=== PATIENT | male | born 1975 | race African-American/Black ===

== ENCOUNTER 2018-05-10 04:07 | Inpatient (IN) | payer OTHER ==
[~2018-05-10] VITALS: Ht 182.9 cm; Wt 127.6 kg
[~2018-05-10 04:07] MED LIST: CYCLOBENZAPRINE10 M1 PO; FLEXERIL10 MG PO; IBUPROFEN800 M1 PO; MEDROL4 M2 PO; MOTRIN 600 MG600 MG PO
--- NOTE | 2018-05-10 04:10 | ED GENERAL ADULT ---
See Addendum History of Present Illness General Chief Complaint: Psychiatric Related Complaint Stated Complaint: BIBA +SI Source: patient Exam Limitations: no limitations Vital Signs & Intake/Output Vital Signs & Intake/Output Vital Signs Date Time Temp Pulse Resp B/P B/P Pulse O2 O2 Flow FiO2 Mean Ox Delivery Rate 05/118 98.5 85 18 116/67 98 Room Air 05/11 1951 98.6 93 18 119/73 98 Room Air 05/11 1411 98.1 88 20 140/82 98 Room Air 05/11 1201 97.1 76 20 132/80 97 05/11 0852 98.4 99 18 118/71 99 05/11 0607 98.1 92 18 128/72 98 Room Air Allergies Coded Allergies: NO KNOWN ALLERGIES (07/04/15) Triage Nurses Notes Reviewed? yes Onset: Gradual Duration: day(s): Timing: remote history HPI: 43 year old male complains of depression with suicidal ideation. The patient states that he's been drinking alcohol tonight and he is just not right. He says he's been depressed and having thoughts about hurting himself. He denies any plan. He says he has a history of chronic back pain. (Misael Kang DO) Reconcile Medications No Known Home Medications (Alea SHELTON,Misael High) Past History Travel History Traveled to [place] past 21 day No Medical History Any Pertinent Medical History? see below for history Cardiovascular: hypertension Surgical History Surgical History: N Psychosocial History What is your primary language French Family History Hx Contributory? No (Misael Kang DO) Review of Systems Review of Systems Constitutional: Denies: fever. EENTM: Denies: visual changes. Respiratory: Denies: short of breath. Cardiovascular: Denies: chest pain. GI: Denies: abdominal pain. Genitourinary: Reports: no symptoms. Musculoskeletal: Reports: no symptoms. Skin: Reports: no symptoms. Neurological/Psychological: Reports: depressed. Hematologic/Endocrine: Reports: no symptoms. Immunologic/Allergic: Reports: no symptoms. (Misael Kang DO) Physical Exam Physical Exam General Appearance: alert, awake, anxious Head: atraumatic, normal appearance Eyes: Bilateral: normal appearance, PERRL, EOMI. Ears, Nose, Throat: normal ENT inspection Neck: full range of motion Respiratory: normal breath sounds, chest non-tender, no respiratory distress Cardiovascular: regular rate/rhythm Peripheral Pulses: 4+ radial (R), 4+ radial (L) Gastrointestinal: soft, non-tender Back: normal range of motion Extremities: no edema Neurologic/Psych: no motor/sensory deficits, awake, alert, oriented x 3 Skin: intact, normal color, warm/dry Core Measures ACS in differential dx? No CVA/TIA Diagnosis: No Sepsis Present: No Sepsis Focused Exam Completed? No (Misael Kang DO) Progress Differential Diagnoses I considered the following diagnoses in my evaluation of the patient: [drug abuse, alcohol intoxication, depression] Plan of Care: Orders Procedure Date/time Status Regular Diet 05/11 D Active Current Medications Sig/Betty Start time Last Medication Dose Stop Time Status Admin Lorazepam 1 MG Q4P PRN 05/11 2145 AC 05/11 (Ativan) 2205 Initial ED EKG: none (Misael Kang DO) Comments: 05/10/2018 8:22:39 AM patient signed out to me by Dr. Kang at shift loom changer. 05/10/2018 10:28:53 AM the treated patient with Maalox and Pepcid given his complaint of "acid reflux". Patient is feeling much better after medications. Awaiting evaluation by the coat checker. 05/10/2018 8:01:11 PM patient signed out to Dr. Kang at shift loom changer. 05/11/2018 7:52:17 PM patient signed out to Dr. Kramer at shift loom changer after an uneventful emergency department stay during the day shift. (Alea SHELTON,Misael High) Departure Departure Disposition: STILL A PATIENT Condition: Stable Clinical Impression Primary Impression: Depression Referrals: Patient Has No Primary Care Dr (PCP/Family) Departure Forms: Customer Survey General Discharge Information Comments 05.10.18 4:36 AM labs were drawn. Crisis consultation was requested. The patient will be signed to Dr. Cosby at 7 AM (Misael Kang DO) Departure Prescriptions: Current Visit Scripts No Known Home Medications (Alea SHELTON,Misael High) Departure Comments pt to be signed out to dr. cosby, 05/12/18, 7am. (Nia SHELTON,Patrice Farley) Critical Care Note Critical Care Note Critical Care Time: 30-74 min (Misael Kang DO) Current Visit Scripts No Known Home Medications (Alea SHELTON,Misael High) Critical Care Note Critical Care Note Critical Care Time: 30-74 min (Misael Kang DO)
[2018-05-10 04:51] LABS: ABSOLUTE BASOPHIL COUNT 0 /CUMM (0.0-0.2); ABSOLUTE EOSINOPHIL COUNT 0.1 /CUMM (0.0-0.7); ABSOLUTE GRANULOCYTE CT 5.2 /CUMM (1.4-6.5); ABSOLUTE LYMPH COUNT 1.7 /CUMM (1.2-3.4); ABSOLUTE MONOCYTE COUNT 0.4 /CUMM (0.10-0.60); BASOPHIL % 0.3 % (0.0-2.0); EOSINOPHIL % 1.1 % (0-5); GRANULOCYTE % 70.4 % (42.2-75.2); HEMATOCRIT 43.4 % (42-52); MEAN CORPUSCULAR HGB 29.8 PG (27.0-31.0); MEAN CORPUSCULAR HGB CONC 33.9 G/DL (33.0-37.0); MEAN PLATELET VOLUME 7.9 FL (7.4-10.4); PLATELET COUNT 359 /CUMM (130-400); RBC DISTRIBUTION WIDTH 13.6 % (11.5-14.5); RED BLOOD CELL CT 4.93 /CUMM (4.70-6.10); WHITE BLOOD CELL COUNT 7.4 /CUMM (4.8-10.8)
--- NOTE | 2018-05-10 17:05 | ED PSYCH CRISIS CONSULTATION ---
See Addendum Crisis Consult Basic Assessment Date of Consult: 05/10/18 Responsible Person/Accompanied By: n/a Insurance Authorization: Insurance #1: Insurance name: HUGO IBRAHIM Phone number: Policy number: [id number] Group number: [id number] Authorization number: ED Provider: Patient's ED Provider: Misael Cosby MD Primary Care Physician: Patient's PCP: Patient Has No Primary Care Dr PCP's Phone Number: Current Psychiatrist: none Chief Complaint: Psychiatric Related Complaint Patient's Quote: "I just want to let myself go, I want to kill myself." Present Illness: Pt is a 43 year old male BIBA after making suicidal statements with a plan to jump off a bridge. Pt continues to report SI at this time with a plan to jump off the bridge. Pt reports depression 9/10 and anxiety 9/10 with 10 being the most severe. He states that he has not been sleeping or eating and having a hard time concentrating. Pt also reports auditory hallucinations that are command in nature which are telling him to kill himself by jumping off a bridge. He also reports some paranoia. He states that a couple weeks ago, a demon voice was coming from my phone saying happy birthday. Pt reports 2 prior suicide attempts ; in 2006, pt attempted to slit his throat and he showed this narrative writer a visible scar. He also stated that a few years ago he attempted to kill himself by jumping out of a 4th story window. He states he was brought to the hospital, but left against medical advice. At this time pt denies HI or VH. Pt reports multiple stressors at this time. He has been on workers compensation since December due to a back injury so has limited income. He and his girlfriend of 6 years have been arguing often. He states that his girlfriend is always accusing him of cheating. Pt was very interested in talking about his relationship with his girlfriend and multiple times during this assessment continued to [place] back to talk about the accusations that his girlfriend has made against him of cheating and how unhappy he is in the relationship. Pt reports that last night, his girlfriend woke him up yelling at him and told him to get out of the house. Pt reports he left the house and walked to a senior living in [place]. Pt states that when he was crossing a bridge on his walk he was hearing voices telling him to jump off the bridge and wanted to jump, but decided to go to the senior living instead. When he got to the senior living he was turned away and then he voiced his suicidal ideation, prompting the senior living staff to call 911. Upon arrival, pts BAL was 42 and his tox screen was positive for cocaine. Pt reports drinking 2 40oz beers last night, but denies using cocaine. He reports that he has been in treatment in the past at [place] and [facility]. Pt states that he liked attending [facility] and thought it was helpful, but his girlfriend made him discharge as she accused him of sleeping with his medcab swing driver. C-SSRS completed and pt identified the following risk factors: suicide attempts in lifetime, in the past week has wished to be , had suicidal thoughts with intent and a plan, recent loss or other significant event, feeling isolated or alone. Feeling helpless, depressed, command hallucinations, severe anxiety, chronic pain, method for suicide, unable to agree to safety plan. Pt identifies the following protective factors: identifies reasons for living, and responsibility to others. Patient's Address: [address] [place] [address] Other Phone Number: Who Do You Live With? Significant Other Family/Informants Interviewed: pt reports he has no family and does not want crisis to contact his girlfriend Юлия Montes. Allergies - Coded Allergies: NO KNOWN ALLERGIES (07/04/15) Current Medications - No Known Home Medications Laboratory Results: Laboratory Tests 05/10/18 0730: Urine Opiates Screen < 100, Methadone Screen < 40, Barbiturate Screen < 60, Ur Phencyclidine Scrn < 6.00, Amphetamines Screen < 100, U Benzodiazepines Scrn < 85, Urine Cocaine Screen > 1000 H, Urine Cannabis Screen < 5.00 05/10/18 0442: Anion Gap 18 H, Estimated GFR > 60, BUN/Creatinine Ratio 10.0, Glucose 125 H, Calcium 9.3, Total Bilirubin 0.4, AST 37, ALT 62, Alkaline Phosphatase 90, Total Protein 8.3 H, Albumin 4.8, Globulin 3.5, Albumin/Globulin Ratio 1.4, CBC w Diff NO MAN DIFF REQ, RBC 4.93, MCV 88.0, MCH 29.8, MCHC 33.9, RDW 13.6, MPV 7.9 , Gran % 70.4, Lymphocytes % 22.4, Monocytes % 5.8, Eosinophils % 1.1, Basophils % 0.3, Absolute Granulocytes 5.2, Absolute Lymphocytes 1.7, Absolute Monocytes 0.4, Absolute Eosinophils 0.1, Absolute Basophils 0, Serum Alcohol 42.0 Past History Past Medical History Cardiovascular: hypertension Psychiatric: depression Past Surgical History Surgical History: none Psychosocial History Strengths/Capabilities: Pt is seeking help and willing to engage in treatment. Physical Limitations (Interventions): Pt is currently on workers compensation because of sciatic nerve pain in his back. Psychiatric Treatment History Psych Treatment Psychiatric Treatment Yes Inpatient Treatment Yes Outpatient Treatment Yes Location of Treatment [facility] Reason for Treatment depression, substances Dates of Treatment stopped attending [facility] a couple years ago Response to Treatment Pt reports Care was very helpful to him. Diagnosis by History: Depression Substance Use/Abuse History Drug Use/Abuse 1 Substances Used/Abused Yes Substance Used/Abused Alcohol First Use "years ago" Last Used last night How much used/taken 2 40oz beers How often "whenever I have money" For how long on and off for years Route of use oral Drug Use/Abuse 2 Substances Used/Abused Yes Substance Used/Abused Crack Cocaine First Use "its been a while" Last Used "months ago" How much used/taken unclear How often unclear For how long unclear Route of use unclear Substance Abuse Treatment Substance Abuse Treatment Past Substance Abuse TX Yes Inpatient Treatment Yes Outpatient Treatment Yes Location of Treatment [facility] Reason for Treatment unclear, possible alcohol Dates of Treatment unclear Response to Treatment Pt presents as a poor historian, response to treatment is unclear Current Mental Status Mental Status Orientation: Person, Place, Situation Affect: Anxious, Depressed, Sad Speech: Hyper-verbal, WNL Neuro-vegetative: Appetite Decreased, Concentration Poor, Energy Decreased, Sleep Disturbance Appearance Appearance- Dress/Hygiene: Pt is dressed in blue hosptial scrubs. He has facial hair and appears to have adequate hygeine. Behaviors Thought Process: Tangential Thought Content: Auditory Hallucinations, WNL Memory: Impaired Insight: Fair SI/HI Risk Assessment Past Suicidal Ideation/Attempts Yes Current Suicidal Ideation/Att Yes Past Homicidal Ideation/Att: No Current Homicidal Ideation/Attempts No Degree of Intent: Made Preparations, Plan, States Intent Danger To: Self Gravely Disabled: Lack of Insight, Poor Judgment Risk Factors: access to lethal means, chronic/serious med cond., high anxiety/ distress, history of suicide atmpts, SA/MH hospitalized, substance abuse, isolate/no social support, poor impulse control, male, limited support Lethality Ratin PTSD Checklist PTSD Done? patient declined (denies trauma history) ED Management Sitter: Yes Restraints: No DSM5/PS Stressors/Medical Prob Diagnosis' (DSM 5, Stressors, Medical): F32.9 - Unspecified Depression F10.20 - Alcohol Use Disorder F14.20 - Cocaine Use Disorder Rule out Psychotic Disorder Medical - Sciatic back pain Stressors: fight with girlfriend, no family supports, on workers compensation for back injury. Current GAF: 25 Departure Disposition Psych Medical Clearance Date: 05/10/18 Medically Cleared at: 1700 Time Started: 1700 Time Ended: 1800 Psychiatrist Consulted: Dr. Reynoso Date Disposition Established: 05/10/18 Time Disposition Established: 1800 Plan for Disposition - Modality: Bedsearch vs. CPS Rationale for Disposition: Crisis spoke to Dr. Reynoso who agrees that pt requires acute inpatient treatment at this time. Pt continues to report SI with a plan to jump off a bridge that he has access too. Pt also reports command hallucinations. Type of IP Admission: Voluntary Referrals Patient Has No Primary Care Dr (PCP/Family)
--- NOTE | 2018-05-11 09:57 | ED PSY CRISIS COLLATERAL NOTE ---
Collateral Note Collateral Note Family/Inform/Goldie Contacts: Addendum 05/11/18 9:40 am: Pt. was seen by Crisis this AM. He asked if he was still waiting for a hospital bed and this chief writer said yes. This chief writer asked if he still wanted to be hospitalized and he replied "well, if I was going to be released where would I go?". He stated he was satisfied to continue waiting for a hospital bed. This was added as an addendum to the consult but [employer] would not allow me to save the addendum so the re-eval has been written in the collateral note template.
--- NOTE | 2018-05-11 12:08 | ED PSYCHIATRIST/APRN CONSULT ---
Psychiatrist/SENIOR FORMULATION SCIENTIST ED Consult Assessment and Plan: Pt seen as f/u Notes not changes in SI and cAHs. Primary stressor is poor relationship with gf. Continues + SI. MSE Appearance: as stated age Speech : nl rate, rhythm, volume and prosody Behavior: cooperative Motor: no psychomotor agitation or retardation Mood : "not too good Affect : flat, non-labile, irritable, appropriate, constricted Thought process: linear and goal directed Thought content : no delusions or paranoia Perceptions: ++ cAHs, +SI, denied HI Insight: poor Judgment: poor A/P: Pt with worsening mood and psychotic sx now with continued danger to self in need of acute psychiatric stablization. Bed search underway.
--- NOTE | 2018-05-12 15:22 | IP CRISIS DIAG ASSESS PSYCH ---
Diagnostic Assessment Basic Assessment Insurance Authorization: Insurance #1: Insurance name: HUGO IBRAHIM Phone number: Policy number: [id number] Group number: [id number] Authorization number: Pt was authorized for 4 days inpatient from 05/12/18- 05/15/18. Auth #[id number]. Manager Of Global will reach out to [facility] on 05/15/18 Primary Care Physician: Patient's PCP: Patient Has No Primary Care Dr PCP's Phone Number: Patient's Quote: "I just want to let myself go, I want to kill myself." Present Illness: Per crisis evaluation authored by Bella Stuart LPC: Pt is a 43 year old male BIBA after making suicidal statements with a plan to jump off a bridge. Pt continues to report SI at this time with a plan to jump off the bridge. Pt reports depression 9/10 and anxiety 9/10 with 10 being the most severe. He states that he has not been sleeping or eating and having a hard time concentrating. Pt also reports auditory hallucinations that are command in nature which are telling him to kill himself by jumping off a bridge. He also reports some paranoia. He states that a couple weeks ago, a demon voice was coming from my phone saying happy birthday. Pt reports 2 prior suicide attempts ; in 2006, pt attempted to slit his throat and he showed this senior medical writer a visible scar. He also stated that a few years ago he attempted to kill himself by jumping out of a 4th story window. He states he was brought to the hospital, but left against medical advice. At this time pt denies HI or VH. Pt reports multiple stressors at this time. He has been on workers compensation since December due to a back injury so has limited income. He and his girlfriend of 6 years have been arguing often. He states that his girlfriend is always accusing him of cheating. Pt was very interested in talking about his relationship with his girlfriend and multiple times during this assessment continued to [place] back to talk about the accusations that his girlfriend has made against him of cheating and how unhappy he is in the relationship. Pt reports that last night, his girlfriend woke him up yelling at him and told him to get out of the house. Pt reports he left the house and walked to a penitentiary in [place]. Pt states that when he was crossing a bridge on his walk he was hearing voices telling him to jump off the bridge and wanted to jump, but decided to go to the penitentiary instead. When he got to the penitentiary he was turned away and then he voiced his suicidal ideation, prompting the penitentiary staff to call 911. Upon arrival, pts BAL was 42 and his tox screen was positive for cocaine. Pt reports drinking 2 40oz beers last night, but denies using cocaine. He reports that he has been in treatment in the past at [place] and [facility]. Pt states that he liked attending [facility] and thought it was helpful, but his girlfriend made him discharge as she accused him of sleeping with his medcab mobile lounge driver. C-SSRS completed and pt identified the following risk factors: suicide attempts in lifetime, in the past week has wished to be , had suicidal thoughts with intent and a plan, recent loss or other significant event, feeling isolated or alone. Feeling helpless, depressed, command hallucinations, severe anxiety, chronic pain, method for suicide, unable to agree to safety plan. Pt identifies the following protective factors: identifies reasons for living, and responsibility to others. Patient's Address: [address] [place] [address] Other Phone Number: Who Do You Live With? Significant Other Feel Safe Where You Live? Yes Marital Status: single Do You Have Children? No Primary Language? Kazakh Language(s) Spoken At Home: [place] Family/Informants Interviewed: pt reports he has no family and does not want crisis to contact his girlfriend Юлия Montes. Allergies - Coded Allergies: NO KNOWN ALLERGIES (NONE 05/12/18) Current Medications - No Known Home Medications Toxicology Screen Completed? Yes Results: positive Symptoms of Use: + cocaine Past History Past Medical History Medical History: Depression, Hypertension Past Surgical History Surgical History none Abuse/Trauma History Trauma History/Current Trauma: Denies Legal History Current Legal Status: none Have you ever been arrested? No Psychosocial History Strengths/Capabilities: Pt is seeking help and willing to engage in treatment. Physical Limitations (Interventions): Pt is currently on workers compensation because of sciatic nerve pain in his back. Psychiatric Treatment History Psych Treatment Psychiatric Treatment Yes Inpatient Treatment Yes Outpatient Treatment Yes Location of Treatment [facility] Reason for Treatment depression, substances Dates of Treatment stopped attending [facility] a couple years ago Response to Treatment Pt reports [facility] was very helpful to him. Diagnosis by History: Depression Risk Factors: access to lethal means, chronic/serious med cond., high anxiety/ distress, history of suicide atmpts, SA/MH hospitalized, substance abuse, isolate/no social support, poor impulse control, male, limited support Substance Use/Abuse History Drug Use/Abuse minimum 12mo Hx 1 Substances Used/Abused Yes Substance Used/Abused Crack Cocaine First Use "its been a while" Last Used "months ago" How much used/taken unclear How often unclear For how long unclear Route of use unclear Drug Use/Abuse minimum 12mo Hx 2 Substances Used/Abused Yes Substance Used/Abused Alcohol First Use "years ago" Last Used 05/09/18 How much used/taken two 40 ozs How often on weekends For how long since January 2018 @ this frequency. Pt reports he was sober for period Route of use oral Substance Abuse Treatment Substance Abuse Treatment Past Substance Abuse TX Yes Inpatient Treatment Yes Outpatient Treatment Yes Location of Treatment [facility] Reason for Treatment unclear, possible alcohol Dates of Treatment unclear Response to Treatment Pt presents as a poor historian, response to treatment is unclear Current Mental Status Mental Status Orientation: Person, Place, Situation Affect: Anxious, Depressed, Sad Speech: Hyper-verbal, WNL Neuro-vegetative: Appetite Decreased, Concentration Poor, Energy Decreased, Sleep Disturbance Appearance Appearance- Dress/Hygiene: Pt is dressed in blue hosptial scrubs. He has facial hair and appears to have adequate hygeine. Behaviors Thought Process: Tangential Thought Content: Auditory Hallucinations, WNL Memory: Impaired Insight: Fair SI/HI Risk Assessment - Minimum 6mo History- Past Suicidal Ideation/Attempts Yes Current Suicidal Ideation/Att Yes Past Homicidal Ideation/Att: No Current Homicidal Ideation/Attempts No Degree of Intent: Made Preparations, Plan, States Intent Danger To: Self Gravely Disabled: Lack of Insight, Poor Judgment Risk Factors: access to lethal means, chronic/serious med cond., high anxiety/ distress, history of suicide atmpts, SA/MH hospitalized, substance abuse, isolate/no social support, poor impulse control, male, limited support Lethality Ratin Needs/Init TX Plan/Goals: comphrensive psychiatric assessment medication evaluation comphrensive psychosocial assessment individual and family therapy family meeting AUDIT-C Questionnaire: AUDIT-C Questionnaire: Response Value ETOH use in the past year 2-4 times/week 3 # drinks typical/day 7-9 3 6 or > drinks per occasion Weekly 3 Total 9 DSM5/PS Stressors/Medical Prob Diagnosis' (DSM 5, Stressors, Medical): F32.9 - Unspecified Depression F10.20 - Alcohol Use Disorder F14.20 - Cocaine Use Disorder Rule out Psychotic Disorder Medical - Sciatic back pain Stressors: fight with girlfriend, no family supports, on workers compensation for back injury. Current GAF: 25
[2018-05-12 20:36] VITALS: BP 165/87
[2018-05-13 07:59] VITALS: BP 149/78
--- NOTE | 2018-05-13 11:45 | CPS PROVIDER INIT ASMT PSYCH ---
Psychiatric Admission Paper Maker's Note Reviewed: Yes Patient Seen and Examined: Yes Identifying Information: 43-year-old Black male Chief Complaint: Per notes of Maricel Acharya LCSW, on 05/12/2018: "[Pt.] making suicidal statements with a plan to jump off a bridge." Reaction to Hospitalization: The patient was admitted voluntarily History of Present Illness Onset of Illness: According to the notes from the health clinician the patient was with care for psychiatric treatment "a couple of years ago." Circumstances Leading to Admission: Per notes of Maricel Acharya LCSW, on 05/12/2018: "a 43 year old male BIBA after making suicidal statements with a plan to jump off a bridge. Pt continues to report SI at this time with a plan to jump off the bridge. Pt reports depression 9/10 and anxiety 9/10 with 10 being the most severe. He states that he has not been sleeping or eating and having a hard time concentrating. Pt also reports auditory hallucinations that are command in nature which are telling him to kill himself by jumping off a bridge. He also reports some paranoia. He states that a couple weeks ago, a demon voice was coming from my phone saying happy birthday. Pt reports 2 prior suicide attempts ; in 2006, pt attempted to slit his throat and he showed this literary writer a visible scar. He also stated that a few years ago he attempted to kill himself by jumping out of a 4th story window. He states he was brought to the hospital, but left against medical advice." Problem(s) Justifying Need for Admission: Thoughts of suicide with a plan to jump off a bridge. Past Psychiatric History Past Diagnosis(es)- if any: Unknown previous diagnoses. Past Precipitating Factors- if any: Alcohol and cocaine use - Include inpatient and outpatient treatment Treatment History: Patient was with care "a couple of years ago." History of Suicide Attempts or Gestures Patient reportedly had 2 previous suicide attempts 1 of them was in 2006. The other attempt he was not clear on. Substance Abuse History: Alcohol and cocaine use Allergies: Coded Allergies: NO KNOWN ALLERGIES (NONE 05/12/18) Home Med List: No Known Home Medications - Include any medical condition(s) that may - impact the patient's recovery/remission Past Medical History: HTN Past History Medical History Neurological: NONE EENT: NONE Cardiovascular: hypertension Respiratory: NONE Gastrointestinal: ACID REFLUX Hepatic: NONE Renal: NONE Musculoskeletal: sciatica Psychiatric: depression Endocrine: NONE Blood Disorders: NONE Cancer(s): NONE History of MRSA: No History of VRE: No History of CDIFF: No Isolation History: Standard Surgical History Surgical History: none Psychiatric Family/Social Hx Family History Psychiatric Illness: not explored by MD, please see the biopsychosocial assessment by PLASTERER JOURNEYMAN Substance Use: not explored by MD, please see the biopsychosocial assessment by P[employer] JOURNEYMAN Suicides: not explored by MD, please see the biopsychosocial assessment by [employer]OURNEYMAN Social History Living Situation: not explored by MD, please see the biopsychosocial assessment by [facility] Significant Relationships (family/friends): not explored by MD, please see the biopsychosocial assessment by [facility] Education: not explored by MD, please see the biopsychosocial assessment by [employer] JOURNEYMAN Vocation/Occupation: not explored by MD, please see the biopsychosocial assessment by PLASTER[employer] JOURNEYMAN Legal: not explored by MD, please see the biopsychosocial assessment by PLASTER[employer] JOURNEYMAN Healthly Behaviors Screening Tobacco Screening Tobacco Use from ED Docu: Current Daily Use Daily Tobacco Use Amount/Type: => 5 Cigarettes daily - If tobacco counseling indicated - the following topics are required. - #1 Recognizing dangerous situations. - #2 Coping Skills. - #3 Basic information about quitting. Status of Tobacco Cessation Counseling: #1, #2 AND #3 Completed Cessation Med Status Nicotine Patch Ordered Alcohol Screening - ETOH screen POS if BAL >=80 or Audit-C>= M4/F3 Audit-C Score from Diag Assess: 9 Blood Alcohol Level: Lab Serum Alcohol 42.0 MG/DL 05/10/18 0442 Alcohol Use Screening Results: Pos per Audit C &/or BAL - If ETOH counseling indicated - the following topics are required. - #1 Express concern about the patient's - drinking at unhealthy levels, include informing - of national norms for moderate drinking: - men <= 14 drinks/week, max 4 drinks/occasion - women <= 7 drinks/week, max 3 drinks/occasion - #2 Providing feedback, including linking alcohol to - negative physical effects (liver injury, hypertension) - negative emotional effects (relationship problems and - depression) - negative occupational consequences (reduced work - performance) - #3 Advising the patient to abstain from alcohol or - to drink below national norms for moderate drinking - (as listed above). Status of ETOH Use Counseling: #1, #2 AND #3 Completed. Metabolic Screening - Screen if on a Neuroleptic Medication - Metabolic screening should include: - Blood Pressure, BMI, Glucose or Hgb A1c, & a - Lipid profile from within the past 365 days. Metabolic Screening Patient on a neuroleptics BMI: 38.300 Blood Pressure: 149/78 Laboratory Results From [facility] (If applicable): add on requested Exam and Plan Mental Status Examination Ambulation Status: The patient was steady on his feet. Appearance: Well-built overweight black male Attitude towards examiner: Calm and cooperative. Psychomotor activity: Normal psychomotor activity. Behavior: Normal behavior. Quality of speech: Normal speech. Affect: Euthymic affect. Mood: Down and depressed. Suicidal Ideation: Deny thoughts of suicide today. He reported that he was having them yesterday. Homicidal Ideation: Denied violent thoughts or homicidal ideation. Hallucinations: Denied hallucinations P Paranoid/Delusional Material: He reported that he has been feeling paranoid. There were no specific delusions during the interview. Difficulties with thought organization: Patient was coherent, there were no difficulties with thought organization. Insight: Seems to have partial insight. Judgment: Seemed to have good judgment in hypothetical situations during the interview. Orientation: He was alert and oriented to time, place, and person. Cognition: He did not seem to have any difficulty with information processing. Memory Function: No evidence of short-term memory impairment. Estimate of intellectual functioning: Average. Assets/Strengths Patient Identified Assets/Strengths: The patient appears to be honest and likable, Impression/Plan Impression and Plan: 43-year-old black male who was admitted because of thoughts of suicide. He has not been in treatment recently but reported that he was in treatment with [facility] "a couple of years ago". He was not on any psychotropic medications at home. He reported depressed mood thoughts of suicide with some plans of jumping off a bridge and he also reported paranoia. 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 but rule out other psychotic Disorder - Initial Tx Plan for Active Psych & Medical Conditions Treatment Plan: Inpatient psychiatric care with safety checks every 15 minutes and Nursing assessments, vital signs, and patient education and Group therapy, milieu therapy, activities therapy Biopsychosocial assessment, collateral information, aftercare planning Patient was started on Risperdal dose will be adjusted up gradually The patient will have his MRI of the back/spine tomorrow morning since he was perseverating about this and focused on this - Factors that would help patient function - in a less restrictive setting. Factors: The patient will be discharge after 2 consecutive days without thoughts of suicide
[2018-05-13 12:21] VITALS: BP 129/71
--- NOTE | 2018-05-13 12:41 | History & Physical ---
General Information and HPI MD Statement: I have seen and personally examined MICHAEL BLOCK and documented this H&P. The patient is a 43 year old M who presented with a patient stated chief complaint of SI. Source of Information: patient Exam Limitations: no limitations History of Present Illness: 43-year-old male with past medical history significant for anxiety, depression, past suicide attempts who is admitted to [facility] with suicidal ideation. Patient had a fight with his girlfriend and he left the house. He was walking to the residential and while walking when he crossed the bridge, he wanted to jump off the bridge. He decided not to do that and instead went to the residential. He has been having thoughts of hurting himself because of feeling depressed and anxious. He said that there is a lot going on in his life. He is mostly concerned about his relationship with his girlfriend. He did mention that they spoke this morning over the phone and everything is okay now. He also has history of lower back pain with sciatica and had been on worker's comp from last 4 months. He has an MRI scheduled for tomorrow morning for his back. He is very concerned about getting that study done. He denies any chest pain, shortness of breath, fevers, chills, nausea, vomiting, abdominal pain, urinary complaints. He denies taking any home prescription medications. He does not remember which [id number] pain medication he was taking for his sciatica. Allergies/Medications Allergies: Coded Allergies: NO KNOWN ALLERGIES (NONE 05/12/18) Home Med list No Known Home Medications Past History Travel History Traveled to [place] past 21 day No Medical History Neurological: NONE EENT: NONE Cardiovascular: hypertension Respiratory: NONE Gastrointestinal: ACID REFLUX Hepatic: NONE Renal: NONE Musculoskeletal: sciatica Psychiatric: depression Endocrine: NONE Blood Disorders: NONE Cancer(s): NONE History of MRSA: No History of VRE: No History of CDIFF: No Isolation History: Standard Surgical History Surgical History: N Past Family/Social History Family History Relations & Conditions if any Relation not specified for: *No pertinent family history Psychosocial History Where do you live? Other Review of Systems Review of Systems Constitutional: Reports: see HPI. EENTM: Reports: see HPI. Cardiovascular: Reports: see HPI. Respiratory: Reports: see HPI. GI: Reports: see HPI. Genitourinary: Reports: see HPI. Musculoskeletal: Reports: see HPI. Neurological/Psychological: Reports: see HPI. Exam & Diagnostic Data Last 24 Hrs of Vital Signs/I&O Vital Signs Date Time Temp Pulse Resp B/P B/P Pulse O2 O2 Flow FiO2 Mean Ox Delivery Rate 05/13 1221 96 129/71 05/13 0759 97.8 96 149/78 05/12 2036 98.2 98 165/87 05/12 1846 98.3 85 18 130/84 97 05/12 1552 98.3 86 18 136/88 99 05/12 1307 98.2 98 18 120/63 97 Intake & Output 05/13 1600 05/13 0800 05/13 0000 Intake Total Output Total Balance Patient 281 lb 275 lb Weight Physical Exam General Appearance Alert, Oriented X3, Cooperative Skin No Rashes HEENT PERRLA Neck Supple Cardiovascular Regular Rate, Normal S1, Normal S2 Lungs Clear to Auscultation Abdomen Normal Bowel Sounds, Soft, No Tenderness Neurological Cranial Nerves II through XII: intact Last 24 Hrs of Labs/Aditya: Labs from May 10 reviewed. Assessment/Plan Assessment: 43-year-old male with past medical history significant for anxiety, depression, sciatica, suicide attempts in the past who is admitted to [facility] with suicidal ideation. Patient is order Tylenol as needed for his pain. His pain score is not bad and he is not currently complaining of intolerable pain. Patient is very concerned about getting his back MRI done tomorrow. Please discuss with the radiology department to see how this can be coordinated. I will leave the psych management up to the psychiatrist. I have reviewed his blood work. He did have high anion gap. I will repeat his BP today. As Ranked By This Provider Problem List: 1. Sciatica 2. Back pain 3. Depression 4. Suicidal ideation Miscellaneous Miscellaneous Documentation Attending Case Discussed With: Shauna Weber MD Primary Care Physician: Patient Has No Primary Care Dr Patient sees these Specialists none Level of Patient Care: [facility]
--- NOTE | 2018-05-13 12:45 | SOCIAL WORKER SOCIAL HX PSYCH ---
Social History Basic Assessment Insurance Authorization: Insurance #1: Insurance name: [employer] Phone number: Policy number: [id number] Group number: [id number] Authorization number: Curr Source of Income/Entitlements: employment Primary Care Physician: Patient's PCP: Patient Has No Primary Care Dr PCP's Phone Number: Present Problem: Per crisis evaluation authored by Bella Stuart LPC: Pt is a 43 year old male BIBA after making suicidal statements with a plan to jump off a bridge. Pt continues to report SI at this time with a plan to jump off the bridge. Pt reports depression 9/10 and anxiety 9/10 with 10 being the most severe. He states that he has not been sleeping or eating and having a hard time concentrating. Pt also reports auditory hallucinations that are command in nature which are telling him to kill himself by jumping off a bridge. He also reports some paranoia. He states that a couple weeks ago, a demon voice was coming from my phone saying happy birthday. Pt reports 2 prior suicide attempts ; in 2006, pt attempted to slit his throat and he showed this resume writer a visible scar. He also stated that a few years ago he attempted to kill himself by jumping out of a 4th story window. He states he was brought to the hospital, but left against medical advice. At this time pt denies HI or VH. Pt reports multiple stressors at this time. He has been on workers compensation since December due to a back injury so has limited income. He and his girlfriend of 6 years have been arguing often. He states that his girlfriend is always accusing him of cheating. Pt was very interested in talking about his relationship with his girlfriend and multiple times during this assessment continued to [place] back to talk about the accusations that his girlfriend has made against him of cheating and how unhappy he is in the relationship. Pt reports that last night, his girlfriend woke him up yelling at him and told him to get out of the house. Pt reports he left the house and walked to a jail in [place]. Pt states that when he was crossing a bridge on his walk he was hearing voices telling him to jump off the bridge and wanted to jump, but decided to go to the jail instead. When he got to the jail he was turned away and then he voiced his suicidal ideation, prompting the jail staff to call 911. Upon arrival, pts BAL was 42 and his tox screen was positive for cocaine. Pt reports drinking 2 40oz beers last night, but denies using cocaine. He reports that he has been in treatment in the past at [facility] and [facility]. 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 C-SSRS completed and pt identified the following risk factors: suicide attempts in lifetime, in the past week has wished to be , had suicidal thoughts with intent and a plan, recent loss or other significant event, feeling isolated or alone. Feeling helpless, depressed, command hallucinations, severe anxiety, chronic pain, method for suicide, unable to agree to safety plan. Pt identifies the following protective factors: identifies reasons for living, and responsibility to others. Primary Language? [place] Language(s) Spoken At Home: [place] Living Situation Rents or Owns Home? rents Feel Safe Where You Are Living Yes Feel Safe in Relationships? Yes Allergies - Coded Allergies: NO KNOWN ALLERGIES (NONE 05/12/18) Current Medications - No Known Home Medications Past History Past Medical History Neurological: NONE EENT: NONE Cardiovascular: hypertension Respiratory: NONE Gastrointestinal: ACID REFLUX Hepatic: NONE Renal: NONE Musculoskeletal: sciatica Psychiatric: depression Endocrine: NONE Blood Disorders: NONE Cancer(s): NONE Past Surgical History Surgical History: N /Family History Place/Country of Origin: [place] Childhood Family Constellation: Mom raised me Dad wasnt around he still livied in [place] when we moved Primary Childhood Caretakers: mother Family Life During Childhood: "good" DCF Involvement? No Mother's Age (Current/): 52 ("") Relationship w/Mother: "good" Father's Age (Current/): 0 ("no idea i dont know him") Relationship w/Father: "none" Any Sibling(s)? No Relationship w/Friends: "good" Family Psych/Sub Abuse/Add Hx: "not that I know of" Abuse/Trauma History Trauma History/Current Trauma: Denies History of Trauma/Abuse Treatment? No Abuse/Trauma Treatment: N/A Legal History Legal Guardian/Address/Phone: Self Current Legal Status: none Pending Court Dates: N/A Have you ever been arrested No Hx of Juvenile Legal Charges? No Hx of Adult Legal Charges? No Civil Proceedings: N/A Domestic Relations Court: N/A Child Protective Serv Involvmnt N/A Oil [employer] Superintendent N/A Psychosocial History Primary Support System: significant other Strengths/Capabilities: Pt is seeking help and willing to engage in treatment. Weaknesses: Pt has a very small support system Physical Limitations (Interventions): Pt is currently on workers compensation because of sciatic nerve pain in his back. Last Physical: 5 years ago History of Seizures? No History of Blackouts? No ADL Limitations: None [place]/Social/Peer Relations "good" Meaningful Activities: Listening to music, playing sports Childhood Christian: no rastafarian stated Current Mormon Affiliation: no rastafarian stated Is Spirituality Important to You? No Patient's Ethnicity: Cultural/Ethnic Issues: N/A Are There Developmental Issues? 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 Diagnosis: Depression Risk Factors: access to lethal means, chronic/serious med cond., high anxiety/ distress, history of suicide atmpts, SA/MH hospitalized, substance abuse, isolate/no social support, poor impulse control, male, limited support Substance Use/Abuse History Drug Use/Abuse:Min 12 mo hx Substance Used/Abused Alcohol First Use "years ago" Last Used 05/09/18 How much used/taken two 40 ozs How often on weekends For how long since January 2018 @ this frequency. Pt reports he was sober for period Route of use oral Have Had Periods of Sobriety? Yes Explain: Since january 2018 Relapse History? Yes Explain: "therese relapsed in the past but i am clean now" Have You Ever Attended AA? Yes Do You Attend AA Currently? No Do You Have a Sponsor? No Other Community Resources Used: N/A Symptoms of Use: + cocaine Substance Abuse Treatment Substance Abuse Treatment Inpatient Treatment Yes Outpatient Treatment Yes Location of Treatment [facility], [facility] Reason for Treatment unclear, possible alcohol Dates of Treatment unclear Response to Treatment Pt presents as a poor historian, response to treatment is unclear Sexual History Sexually Active No # of partners 0 ("a Few") Sexual Orientation Heterosexual Use of Protection No ("not active at the moment") Sexual Concerns: None Education History Highest Level of Education: high school/GED Highest Grade Completed: 11 Vocational Year Completed: 0 Number of College Years: 0 College Degree/Major: N/A Preferred Learning Style: visual, auditory, experiential HX of Learning Difficulties: Learning Disabilities, Special Education Barriers to Learning: Dyslexia Special Communication Needs: None reported Employment History Employment Employed Not in Labor Force: Currently on [email or web address] comp Vocation/Occupational Hx: "i work at [employer]" No. of Jobs in Last 5 Years: 1 Attendance: Above average Performance: Good Comments: "im a good worker" History Have You Been in The ? No Current Mental Status Mental Status Orientation: Person, Place, Situation Affect: Anxious, Depressed, Sad Speech: Hyper-verbal, WNL Neuro-vegetative: Appetite Decreased, Concentration Poor, Energy Decreased, Sleep Disturbance Appearance Appearance- Dress/Hygiene: Pt is dressed in blue hosptial scrubs. He has facial hair and appears to have adequate hygeine. Behaviors Thought Process: Tangential Thought Content: Auditory Hallucinations, WNL Memory: Impaired Insight: Fair SI/HI Risk Assessment Past Suicidal Ideation/Attempts Yes Current Suicidal Ideation/Att Yes Past Homicidal Ideation/Att: No Current Homicidal Ideation/Attempts No Degree of Intent: Made Preparations, Plan, States Intent Danger To: Self Gravely Disabled: Lack of Insight, Poor Judgment Risk Factors: Hx of suicide attempt(s), Isolated/no social suppor, Lack of concern outcome, Male, Poor impulse control, Substance Abuse Lethality Ratin - Conclusion and Recommendations for treatment - and discharge planning Summary: Pt lacks a social support system, currently endorsing SI and AH no HI or VH. Pt in calm and cooperative and oriented x3.
[2018-05-13 16:13] VITALS: BP 144/83
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
[2018-05-13 20:11] VITALS: BP 140/81
--- NOTE | 2018-05-14 08:35 | CP SOUTH PROGRESS NOTE PSYCH ---
Psych (Inpt) Progress Note Progress Note Laboratory Tests 05/14 0630 Chemistry Sodium (137 - 145 mmol/L) 142 Potassium (3.5 - 5.1 mmol/L) 4.4 Chloride (98 - 107 mmol/L) 102 Carbon Dioxide (22 - 30 mmol/L) 27 Anion Gap (5 - 16) 13 BUN (9 - 20 mg/dL) 13 Creatinine (0.7 - 1.2 mg/dL) 1.0 Estimated GFR (>60 ml/min) > 60 BUN/Creatinine Ratio (7 - 25 %) 13.0 Hemoglobin A1c (4.2 - 5.8 %) 6.1 H Triglycerides (<150 mg/dL) 192 H Cholesterol (< 200 MG/DL) 182 LDL Cholesterol, Calc (65 - 129 mg/dL) 99 HDL Cholesterol (40 - 60 mg/dL) 45 Cholesterol/HDL Ratio (0.00 - 4.88 %) 4 Vital Signs Date Time Temp Pulse Resp B/P B/P Pulse O2 O2 Flow FiO2 05/14 1232 98.0 95 147/91 05/13 2011 98.3 98 140/81 05/13 1613 96 144/83 Mental Status Examination The patient was steady on his feet. Well-built overweight black male, calm and cooperative. Normal psychomotor activity. Normal behavior. Normal speech. Euthymic affect. Down and depressed. Deny thoughts of suicide today. He reported that he was having them yesterday. Denied violent thoughts or homicidal ideation. Denied hallucinations today, denied feeling paranoid (his description of the symptoms suggested social phobia not true paranoia) there were no specific delusions during the interview. Patient was coherent, there were no difficulties with thought organization. He was alert and oriented to time, place, and person. He did not seem to have any difficulty with information processing. No evidence of short-term memory impairment. Assessment: 43-year-old black male who was admitted because of thoughts of suicide with plan of jumping off a bridge and he also reported paranoia. 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
[2018-05-14 12:32] VITALS: BP 147/91
[2018-05-14 16:08] VITALS: BP 125/72
--- NOTE | 2018-05-14 16:20 | MRI REPORT ---
MR LUMBAR SPINE WITHOUT IV CONTRAST CLINICAL INFORMATION: Sciatica. Lumbar spine pain. COMPARISON: Lumbar spine radiographs 01/10/2018. TECHNIQUE: MRI of the lumbar spine without contrast was obtained using routine sequences. FINDINGS: There are 5 nonrib-bearing lumbar-type vertebral bodies. Lumbar alignment is normal. The vertebral body heights are maintained. Mild disc volume loss and partial disc desiccation at L4-L5 and L5-S1. There is no bone marrow edema. There are no acute fractures. Modic type II endplate signal changes along the inferior endplates of T11 and T12. The conus terminates at the L1 level. No significant soft tissue findings are appreciated. L1-L2: Disc contour is normal. No central canal stenosis and no foraminal stenosis. L2-L3: The disc contour is normal. There is mild bilateral facet arthropathy. There is no central canal stenosis and there is no foraminal stenosis. L3-L4: Disc contour is normal. There is no central canal stenosis and there is no significant foraminal stenosis. L4-L5: There is a large left lateral disc protrusion that results in severe left-sided foraminal stenosis and compression of the exiting left L4 nerve root. Background annular disc bulge and mild bilateral facet arthropathy. Mild narrowing of the central canal. Mild right foraminal narrowing. L5-S1: There is a left paracentral disc protrusion that results in mass effect on the traversing left S1 nerve root within the left subarticular zone. [place] annular disc bulge and mild bilateral facet arthropathy. There is mild narrowing of the central canal. A left lateral disc protrusion results in moderate left-sided foraminal stenosis with probable mass effect on the exiting left L5 nerve root. A right lateral disc protrusion results in moderate right-sided foraminal stenosis with probable mass effect on the exiting right L5 nerve root. IMPRESSION: - At L4-L5, there is a large left lateral disc protrusion that results in severe left-sided foraminal stenosis and compression of the exiting left L4 nerve root. - At L5-S1, there is a left paracentral disc protrusion resulting in mass effect on the traversing left S1 nerve root within the left subarticular zone and lateral disc protrusions bilaterally result in moderate bilateral foraminal stenosis with probable mass effect on the exiting L5 nerve roots bilaterally.
--- NOTE | 2018-05-14 18:12 | SOCIAL WORKER PROG NOTE PSYCH ---
Social Work Progress Note Progress Note 2pm: Dr. Olmstead and this investment underwriter met with the patient and his girlfriend, Юлия, for a family meeting. Юлия denied having any safety concerns and was agreeable to discharge tomorrow. She inquired about outpatient treatment, and was informed of the recommendation of [facility]. Patient stated that he is willing to attend [facility] and to have an intake scheduled. Patient and Юлия discussed interest in supporting one another through recovery. Юлия and patient denied having any guns or weapons in the home. Patient stated that he would also like to return to work.
[2018-05-14 19:52] VITALS: BP 143/75
[2018-05-15 07:44] VITALS: BP 147/81
[2018-05-15] MEDS ORDERED: RISPERDAL1 M1 PO (09:05)
[2018-05-15] MEDS ORDERED: FAMOTIDINE20 M1 PO (09:05)
--- NOTE | 2018-05-15 09:08 | Patient Discharge Instructions ---
Psych Discharge Inst General Discharge Information Reason for Admission: thoughts of suicide Psy Discharge Primary Diag+ Unspecified Depressive DO Psy Discharge Secondary Diag+ Alcohol Use Disorder Summary Tests/Major Procedures Lab Albumin/Globulin Ratio 1.4 % 05/10/18 0442 Cholesterol 182 MG/DL 05/14/18 0630 Cholesterol/HDL Ratio 4 % 05/14/18 0630 HDL Cholesterol 45 mg/dL 05/14/18 0630 Hemoglobin A1c 6.1 % H 05/14/18 0630 LDL Cholesterol, Calc 99 mg/dL 05/14/18 0630 Triglycerides 192 mg/dL H 05/14/18 0630 Studies Pending at DC: none Patient Instructions Contact Information Your Psychiatrist on [facility] was Han Olmstead MD * If you are experiencing an emergency related to this hospitalization, please call [phone] to contact the treating psychiatrist or the psychiatrist-on- call. * To Request a copy of your medical records, please contact the Medical Records Department at [phone]. * To request results of studies pending at the time of discharge, please call [phone]. * Continue your Medications until directed to stop by your Healthcare provider. General Medication Information Please continue to take your new medications and your continued home medications , unless otherwise indicated on your discharge medication list, or unless directed by your MD or JUNIOR PROJECT COORDINATOR to stop them. Special Instructions Diet Regular Activity Normal - Tobacco Use Treatment Offered Post DC Medications Offered: Refused Tob Medication Tx Post DC Tobacco Treatment Plan: Refused Tobacco Tx Pgm - EtOH/Drug Use D/O Treatment Offered Post DC Medications Offered: Med Not Indicated for D/O Post DC EtOH/SubAbuse TX Plan: [facility] SubAbuse/Dual IOP Metabolic Screening Patient on a neuroleptic(s) . Enter below results for Hemoglobin A1C, and lipid panel if obtained during the last 365 days. BMI: 38.300 Blood Pressure: 147/81 Laboratory Results From [facility] (If applicable): Lab Albumin/Globulin Ratio 1.4 % 05/10/18 0442 Cholesterol 182 MG/DL 05/14/18 0630 Cholesterol/HDL Ratio 4 % 05/14/18 0630 HDL Cholesterol 45 mg/dL 05/14/18 0630 Hemoglobin A1c 6.1 % H 05/14/18 0630 LDL Cholesterol, Calc 99 mg/dL 05/14/18 0630 Triglycerides 192 mg/dL H 05/14/18 0630 Advance Directives Does the Patient have Medical Advance Directives No/Refused further info Does Pt have Psychiatric Advance Directives? No/Refused further info Does Patient have a Designated Surrogate Decision Maker: No Information About Psychiatric Advance Directives Provided? Refused Discharge Plan Post Hospital Treatment Plan: Dual Track IOP-[facility]
--- NOTE | 2018-05-15 09:12 | CP SOUTH PROGRESS NOTE PSYCH ---
Psych (Inpt) Progress Note Progress Note Vital Signs Date Time Temp Pulse B/P 05/15 0744 98.3 92 147/81 05/14 1952 97.8 102 143/75 05/14 1608 96 125/72 Mental Status: The patient was calm and cooperative. Normal psychomotor activity. Normal behavior. Normal speech. Euthymic affect. Mood is "good" , denied thoughts of suicide. He denied violent thoughts or homicidal ideation. He denied hallucinations today, denied feeling paranoid (his description of the symptoms suggested social phobia not true paranoia), there were no specific delusions during the interview. Patient was coherent, there were no difficulties with thought organization. He was alert and oriented to time, place, and person. He did not seem to have any difficulty with information processing. No evidence of short-term memory impairment. Assessment: 43-year-old black male who was admitted because of thoughts of suicide with plan of jumping off a bridge and he also reported paranoia. Today and yesterday, pt. 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-
[2018-05-15 12:02] VITALS: BP 150/78
--- NOTE | 2018-05-15 13:02 | DISCHARGE SUMMARY REPORT-PSYCH ---
Visit Information Visit Dates/Diagnosis' Admission Date: 05/12/18 Discharge Date: 05/15/18 Reason for Admission: thoughts of suicide Psy Discharge Primary Diag: Unspecified Depressive DO Psy Discharge Secondary Diag: Alcohol Use Disorder Hospital Course Significant Lab Findings: Lab Albumin/Globulin Ratio 1.4 % 05/10/18 0442 Cholesterol 182 MG/DL 05/14/18 0630 HDL Cholesterol 45 mg/dL 05/14/18 0630 Hemoglobin A1c 6.1 % H 05/14/18 0630 LDL Cholesterol, Calc 99 mg/dL 05/14/18 0630 Triglycerides 192 mg/dL H 05/14/18 0630 Course Allergies: Coded Allergies: NO KNOWN ALLERGIES (NONE 05/12/18) Hospital Course/TX Response: Mental Status: The patient was calm and cooperative. Normal psychomotor activity. Normal behavior. Normal speech. Euthymic affect. Mood is "good" , denied thoughts of suicide. He denied violent thoughts or homicidal ideation. He denied hallucinations today, denied feeling paranoid (his description of the symptoms suggested social phobia not true paranoia), there were no specific delusions during the interview. Patient was coherent, there were no difficulties with thought organization. He was alert and oriented to time, place, and person. He did not seem to have any difficulty with information processing. No evidence of short-term memory impairment. Assessment: 43-year-old black male who was admitted because of thoughts of suicide with plan of jumping off a bridge and he also reported paranoia. Today and yesterday, pt. 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 but rule out other psychotic Disorder Treatment Plan: Discharge home follow up with [facility]- Discharge HBIPS - Tobacco Use Treatment Offered Post DC Medications Offered: Refused Tob Medication Tx Post DC Tobacco Treatment Plan: Refused Tobacco Tx Pgm - EtOH/Drug Use D/O Treatment Offered Post DC Medications Offered: Med Not Indicated for D/O Post DC EtOH/SubAbuse TX Plan: Refused Post DC Tx Pgm Metabolic Screening - Screen if on a Neuroleptic Medication - Metabolic screening should include: - Blood Pressure, BMI, Glucose or Hgb A1c, & a - Lipid profile from within the past 365 days. Metabolic Screening Patient on a neuroleptic(s) . Enter below results for Hemoglobin A1C, and lipid panel if obtained during the last 365 days. BMI: 38.300 Blood Pressure: 150/78 Laboratory Results From [facility] (If applicable): Lab Albumin/Globulin Ratio 1.4 % 05/10/18 0442 Cholesterol 182 MG/DL 05/14/18 0630 HDL Cholesterol 45 mg/dL 05/14/18 0630 Hemoglobin A1c 6.1 % H 05/14/18 0630 LDL Cholesterol, Calc 99 mg/dL 05/14/18 0630 Triglycerides 192 mg/dL H 05/14/18 0630 Discharge Instructions General Discharge Information Multiple Neuroleptics: Not Applicable Discharge Diet Regular Discharge Activity Normal DC Disposition: Home Referrals Ordered Referrals Intensive Outpt Psy-Substance 05/16/[address] [place] [address] [id number] [facility] Intensive Outpatient (IOP) [address] [place] [address] Intake appointment: Wednesday, May 16, 2018, at 11:30am Provider Referral 05/21/18 For Providers: [[facility]] For Groups: [Smoking Cessation Group] [facility] [address] [phone] Groups meet every other Saturday at 4pm Next group: 05/21/18, at 4pm Prescriptions Start taking the following new medications: Risperidone (Risperdal) 1 MG TABLET 1 Milligram ORAL AT BEDTIME Qty = 15 No Refills Comments: Last Taken:05/14/18 Time:0800 Famotidine (Famotidine) 20 MG TABLET 20 Milligram ORAL DAILY Qty = 30 No Refills Comments: Last Taken:05/15/18 Time:0800 Studies Pending at Discharge none Copies To: -OPS
--- NOTE | 2018-05-15 18:14 | SOCIAL WORKER PROG NOTE PSYCH ---
Social Work Progress Note Progress Note This clinical writer met with patient. He described his mood as "alright" and denied SI. He denied any thoughts to harm himself and denied any thoughts to jump off a bridge. He denied HI/hallucinations. Patient stated that he planned to return home to live with his girlfriend Юлия upon discharge and that she would provide transportation home. He stated that he will attend AA meetings and obtain a sponsor. He has a meeting book at home. This clinical writer encouraged him to identify meetings he could attend ahead of time, to which he agreed. Patient identified a safety plan in which he would "call 211" and accepted the crisis numbers and warm lines upon discharge. He stated that he does not have any access to weapons or guns. He feels safe to discharge home today. He stated that he did not need any additional appointments or referrals. Patient accepted the smoking cessation group information. Patient initially accepted the IOP intake appointment for 05/16/18 at 11:30am. This clinical writer was later informed that his insurance would not cover IOP/PHP. This clinical writer called his insurance company at [phone] however was unable to resolve the issue by the end of the day. This clinical writer spoke with the patient by phone today regarding the matter. He stated that he would be willing to schedule an appointment with OPS if needed. We agreed to speak tomorrow. He stated that he can be reach at his number listed in the EMR ([phone]) and will be available tomorrow. This clinical writer informed Glenys Mora of this and will be in touch with IOP and OPS tomorrow as appropriate. This clinical writer relayed this information to Dr. Olmstead and Krysta Mcclendon as well. Faxed Referral(s) Referred To: OPS Transition of Care Documents sent: Health Summary Faxed to: OPS Fax #: [phone] Faxed by: Yassine Pollard LCSW Date faxed: 05/15/18 Time Faxed: [phone]
--- NOTE | 2018-05-16 18:24 | SOCIAL WORKER PROG NOTE PSYCH ---
Social Work Progress Note Progress Note This marketing underwriter spoke with Tunde at patient's insurance ([phone]) regarding IOP. He stated that the IOP "should fall" under outpatient benefits, however, he could not guarantee this. He stated that the patient would be responsible for a 70% co-insurance after deductible and then a $5 co-pay for each day. He stated that a pre-cert would not be needed for outpatient services. Ref # for this call: [id number]. This marketing underwriter spoke with patient (and his fianceЮлия who was with the patient) . They stated that they would not be able to afford this. This marketing underwriter spoke with Dr. Olmstead and Krysta Mcclendon. Patient will be referred to [facility], which he accepted. Patient accepted the following appointments: Intake 05/19/18 at 8:30 am with Heather Villalba LCSW Medication appointment 06/12/[address] Landeros Patient was offered an earlier medication appointment (05/21/18), but was unable to accept it as it coflicted with a medical appointment. He was also provided, at his request, with the business office number ([phone]) as he would like to address financial concerns and costs related to treatment.
== END 2018-05-15 12:54 | DRG 881 ==
LOC: ERH 04:07 → CP SOUTH 05-12 13:36 → ERHI 05-12 13:36 → ENTRNSPT 05-12 19:26 → EDTRNSPT 05-12 19:33 → EDTRNSPTSTS 05-12 19:33 → CMPTRNSPT 05-12 19:40 → CP SOUTH 05-12 20:28 → ENRESERV 05-12 23:59 → CMPBEDREQ 05-13 12:56 → CP SOUTH 05-15 12:54
PROVIDERS: Emergency Medicine; Psychiatry & Neurology Psychiatry
DX: F32.9 Major depressive disorder, single episode, unspecified (principal); F10.10 Alcohol abuse, uncomplicated
CPT/HCPCS: 72148; 36415; 80307; 82436; G0463; G0480; J0515; J1630

== ENCOUNTER 2018-05-24 20:23 | Emergency (ER) | payer OTHER ==
[~2018-05-24] VITALS: Ht 177.8 cm; Wt 127.0 kg
[~2018-05-24 20:23] MED LIST changes: +FAMOTIDINE20 M1 PO; +RISPERDAL1 M1 PO
--- NOTE | 2018-05-24 21:02 | ED PSYCHIATRIC COMPLAINT ---
History of Present Illness General Chief Complaint: Psychiatric Related Complaint Stated Complaint: +SI PER PT Source: patient Exam Limitations: intoxication Vital Signs & Intake/Output Vital Signs & Intake/Output Vital Signs Date Time Temp Pulse Resp B/P B/P Pulse O2 O2 Flow FiO2 Mean Ox Delivery Rate 05/25 1049 90 20 118/60 98 Room Air 05/25 0832 98.0 99 20 122/69 99 Room Air 05/25 0615 97.4 90 18 142/63 98 Room Air 05/249 97.0 120 22 127/90 97 Room Air ED Intake and Output 05/25 0000 05/24 1200 Intake Total Output Total Balance Patient 280 lb Weight Allergies Coded Allergies: NO KNOWN ALLERGIES (NONE 05/12/18) Reconcile Medications Famotidine 20 MG TABLET 20 MG PO DAILY heartburn Risperidone (Risperdal) 1 MG TABLET 1 MG PO AT BEDTIME social phobia Triage Note: PT TO TRIAGE FOR +SI WITHOUT A PLAN. PT STATES "THERES ALOT OF TRIGGERS OUT THERE," BUT WOULD NOT ELABORATE. PT DENIES HI. ADMITS TO ETOH USE "A FEW BEERS," TODAY. DENIES DAILY DRINKING OR ILLICIT DRUG USE. PT STATES HAS BEEN HERE BEFORE FOR SAME AND REQUESTS "MEDICATION TO CALM ME DOWN." Triage Nurses Notes Reviewed? yes HPI: Patient presents for evaluation of suicidal ideation. Patient states that he is feeling suicidal "again". Patient states he began feeling this way earlier today. It is similar to 2 weeks ago when he was feeling suicidal and was treated with medications with improvement. Unfortunately he states he didn't get any medications to take as an outpatient so he currently takes nothing to help with his voices. He denies any specific plan but wanted to be evaluated before things got worse. He admits to drinking 2 40 ounce beers today. He does admit to crack cocaine use 2 weeks ago. (Alea SHELTON,Misael High) Past History Travel History Traveled to [place] past 21 day No Medical History Any Pertinent Medical History? see below for history Neurological: NONE EENT: NONE Cardiovascular: hypertension Respiratory: NONE Gastrointestinal: ACID REFLUX Hepatic: NONE Renal: NONE Musculoskeletal: sciatica Psychiatric: depression Endocrine: NONE Blood Disorders: NONE Cancer(s): NONE History of MRSA: No History of VRE: No History of CDIFF: No Surgical History Surgical History: N Psychosocial History Who do you live with Significant Other What is your primary language Romansh Tobacco Use: Current Daily Use Daily Tobacco Use Amount/Type: => 5 Cigarettes daily ETOH Use: heavy use Family History Family History, If Any: Relation not specified for: *No pertinent family history Hx Contributory? No (Misael Cosby MD) Review of Systems Review of Systems Constitutional: Reports: no symptoms. EENTM: Reports: no symptoms. Respiratory: Reports: no symptoms. Cardiovascular: Reports: no symptoms. GI: Reports: no symptoms. Genitourinary: Reports: no symptoms. Musculoskeletal: Reports: no symptoms. Skin: Reports: no symptoms. Neurological/Psychological: Reports: see HPI. Hematologic/Endocrine: Reports: no symptoms. Immunologic/Allergic: Reports: no symptoms. All Other Systems: Reviewed and Negative (Alea SHELTON,Misael High) Physical Exam Physical Exam General Appearance: see below Neurological/Psychiatric: see below Comments: General: Alert, calm, cooperative Head: Normocephalic, atraumatic Eyes: Normal inspection, no nystagmus, EOMI Ears: Normal inspection Nose: Normal inspection Throat: Moist mucosa Neck: Supple, no goiter Heart: Regular rate and rhythm, no murmurs rubs or gallops Lungs: Clear to auscultation bilaterally with good air entry Abdomen: Soft nontender nondistended, normal bowel sounds Chest: Nontender Extremities: Normal range of motion grossly, mild tremors present, no cyanosis clubbing or edema of the upper extremities Neurologic: cranial nerves II through XII grossly intact, speech clear, gait normal Psychiatric: no pressured speech or thought blocking, patient admits to hearing voices" noises" SAD PERSONS Done? referred to crisis (Misael Cosby MD) Progress Differential Diagnosis: schizophrenia, schizoaffective disorder, bipolar disorder with psychotic features, depression with psychotic features Plan of Care: Orders Procedure Date/time Status Regular Diet 05/25 B Active URINE DRUG SCREEN FOR ER ONLY 05/24 2138 Complete Continuous Observation Monitor 05/24 2124 Active ED CRISIS PSYCH CONSULT 05/24 2124 Active ACETOMINOPHEN 05/24 2044 Complete SALICYLATE 05/24 2044 Complete LIPASE 05/24 2044 Complete ETHANOL 05/24 2044 Complete COMPREHENSIVE METABOLIC PANEL 05/24 2044 Complete CBC WITHOUT DIFFERENTIAL 05/24 2044 Complete Laboratory Tests 05/24/18 2142: Urine Opiates Screen < 100, Methadone Screen < 40, Barbiturate Screen < 60, Ur Phencyclidine Scrn < 6.00, Amphetamines Screen 220, U Benzodiazepines Scrn < 85, Urine Cocaine Screen > 1000 H, Urine Cannabis Screen 7.00 05/24/185: Anion Gap 18 H, Estimated GFR 52 L, BUN/Creatinine Ratio 7.3, Glucose 125 H, Calcium 9.8, Total Bilirubin 0.4, AST 38, ALT 67, Alkaline Phosphatase 95, Total Protein 8.8 H, Albumin 5.0, Globulin 3.8, Albumin/Globulin Ratio 1.3, Lipase 364 H, CBC w Diff NO MAN DIFF REQ, RBC 5.11, MCV 86.6, MCH 29.6, MCHC 34.1, RDW 13.6, MPV 8.0, Gran % 58.9, Lymphocytes % 35.0, Monocytes % 4.6, Eosinophils % 0.8, Basophils % 0.7, Absolute Granulocytes 5.5, Absolute Lymphocytes 3.3, Absolute Monocytes 0.4, Absolute Eosinophils 0.1, Absolute Basophils 0.1, Salicylates < 1.0, Acetaminophen < 10.0 L, Serum Alcohol 93.0 Comments: 05/25/2018 7:15:31 AM patient signed out to Dr. Bill at shift roll changer. (Alea SHELTON,Misael High) Comments: 1005 the patient is awake and alert. Pending crisis clearance. Denies any physical pain or discomfort. 1102 patient cleared by crisis. Patient awake and alert, not intoxicated. Strongly denies being suicidal homicidal. (Manav Bill MD) Departure Departure Condition: Stable Referrals: Patient Has No Primary Care Dr (PCP/Family) Departure Forms: Customer Survey General Discharge Information (Alea SHELTON,Misael High) Departure Time of Disposition: 1103 Disposition: HOME OR SELF CARE Clinical Impression Primary Impression: Cocaine abuse Secondary Impressions: Depression Additional Instructions: Return if you have any thoughts of harming yourself or anyone else. Do not use cocaine or any recreational drugs. (Manav Bill MD)
[2018-05-24 21:08] LABS: ABSOLUTE BASOPHIL COUNT 0.1 /CUMM (0.0-0.2); ABSOLUTE EOSINOPHIL COUNT 0.1 /CUMM (0.0-0.7); ABSOLUTE GRANULOCYTE CT 5.5 /CUMM (1.4-6.5); ABSOLUTE LYMPH COUNT 3.3 /CUMM (1.2-3.4); ABSOLUTE MONOCYTE COUNT 0.4 /CUMM (0.10-0.60); BASOPHIL % 0.7 % (0.0-2.0); EOSINOPHIL % 0.8 % (0-5); GRANULOCYTE % 58.9 % (42.2-75.2); HEMATOCRIT 44.3 % (42-52); MEAN CORPUSCULAR HGB 29.6 PG (27.0-31.0); MEAN CORPUSCULAR HGB CONC 34.1 G/DL (33.0-37.0); MEAN CORPUSCULAR VOLUME 86.6 FL (80.0-94.0); PLATELET COUNT 454 /CUMM (130-400); RBC DISTRIBUTION WIDTH 13.6 % (11.5-14.5); RED BLOOD CELL CT 5.11 /CUMM (4.70-6.10); WHITE BLOOD CELL COUNT 9.3 /CUMM (4.8-10.8)
--- NOTE | 2018-05-25 10:39 | ED PSYCH CRISIS CONSULTATION ---
See Addendum Crisis Consult Basic Assessment Date of Consult: 05/25/18 Responsible Person/Accompanied By: Patient self presented to ED. Insurance Authorization: Insurance #1: Insurance name: [employer] Phone number: Policy number: [id number] Group number: [id number] Authorization number: ED Provider: Patient's ED Provider: Manav Bill MD Primary Care Physician: Patient's PCP: Patient Has No Primary Care Dr PCP's Phone Number: Current Psychiatrist: None noted Chief Complaint: Psychiatric Related Complaint Patient's Quote: " I was blacked out last night and came here." Present Illness: Pt is a 43 y.o. male who self presented to ED last evening due to suicidal thoughts with no plan. Pt was under the influence of alcohol and cocaine upon arrival to ED. Pt's utox positive for cocaine and BAL was .93. Pt was d/c from [facility] on 05[facility]18 and was referred to [facility] for follow up treatment. Pt states that he did not follow up with [facility] because he is unable to afford the co-pays for each session. Pt reports that he relapsed on cocaine and alcohol yesterday, blacked out and came to the hospital for help. Pt is denying SI, HI and AH/VH at present. He reports his primary problem is his substance abuse and currently being on workers comp due to a back injury. Pt is unable to return to work until he receives epidural shot to help manage the pain. He admits to using substances to help with the pain and because of boredum since being out of work. Pt lives with his girlfriend, Юлия, in a safe environment and he repots feeling safe returning back today. encouraged pt to follow up with AA meetings if unable to afford IOP groups. CONNOR attempted to contact pt's significant other, Юлия, to obtain collaterol but phone was off. Pt spoke to pt's grandmother, Fei Elizabeth ([phone]), who denied any current concerns of pt and agreed with plan for him to d/c home today. C-SSRS conducted to evaluate patient. Pt reports previous suicidal thoughts, previous psychiatric diagnoses and treatment, and non compliance with follow up treatment. Protective factors include identifying reasons for living, supportive social network or family, fear of or dying, engaged inwork. Patient's Address: [address] [place] [address] [address] [place] [address] Other Phone Number: Who Do You Live With? Significant Other Family/Informants Interviewed: See present illness Allergies - Coded Allergies: NO KNOWN ALLERGIES (NONE 05/12/18) Current Medications - Scheduled Medications Famotidine 20 MG TABLET 20 MG PO DAILY heartburn #30 TAB Prescribed by Han Olmstead MD on 05/15/18 Risperidone (Risperdal) 1 MG TABLET 1 MG PO AT BEDTIME social phobia #15 TAB Prescribed by Han Olmstead MD on 05/15/18 Laboratory Results: Laboratory Tests 05/24/182141: Urine Opiates Screen < 100, Methadone Screen < 40, Barbiturate Screen < 60, Ur Phencyclidine Scrn < 6.00, Amphetamines Screen 220, U Benzodiazepines Scrn < 85, Urine Cocaine Screen > 1000 H, Urine Cannabis Screen 7.00 05/24/182044: Anion Gap 18 H, Estimated GFR 52 L, BUN/Creatinine Ratio 7.3, Glucose 125 H, Calcium 9.8, Total Bilirubin 0.4, AST 38, ALT 67, Alkaline Phosphatase 95, Total Protein 8.8 H, Albumin 5.0, Globulin 3.8, Albumin/Globulin Ratio 1.3, Lipase 364 H, CBC w Diff NO MAN DIFF REQ, RBC 5.11, MCV 86.6, MCH 29.6, MCHC 34.1, RDW 13.6, MPV 8.0, Gran % 58.9, Lymphocytes % 35.0, Monocytes % 4.6, Eosinophils % 0.8, Basophils % 0.7, Absolute Granulocytes 5.5, Absolute Lymphocytes 3.3, Absolute Monocytes 0.4, Absolute Eosinophils 0.1, Absolute Basophils 0.1, Salicylates < 1.0, Acetaminophen < 10.0 L, Serum Alcohol 93.0 Past History Past Medical History Neurological: NONE EENT: NONE Cardiovascular: hypertension Respiratory: NONE Gastrointestinal: ACID REFLUX Hepatic: NONE Renal: NONE Musculoskeletal: sciatica Psychiatric: depression Endocrine: NONE Blood Disorders: NONE Cancer(s): NONE Past Surgical History Surgical History: none Psychosocial History Strengths/Capabilities: Pt is seeking help and willing to engage in treatment. Physical Limitations (Interventions): Pt is currently on workers compensation because of sciatic nerve pain in his back. Psychiatric Treatment History Psych Treatment Psychiatric Treatment Yes Inpatient Treatment Yes Outpatient Treatment Yes Location of Treatment [facility] CPS d/c 05/15/18, hx of op tx with Care Reason for Treatment Depression and polysubstance abuse Dates of Treatment April 2018 Response to Treatment Poor, did not follow up with IOP and relapsed. Diagnosis by History: Unspecified depression, alcohol use d/o, cocaine use d/o Substance Use/Abuse History Drug Use/Abuse 1 Substances Used/Abused Yes Substance Used/Abused Cocaine First Use unknown Last Used 05/24/18 How much used/taken unclear How often few times a month For how long unknown Route of use unknown Drug Use/Abuse 2 Substances Used/Abused Yes Substance Used/Abused Alcohol First Use "Years ago" Last Used 05/24/18 How much used/taken Unknown How often "whenever" For how long unclear Route of use oral Substance Abuse Treatment Substance Abuse Treatment Past Substance Abuse [place] Yes Inpatient Treatment Yes [facility] Reason for Treatment Polysubstance abuse Dates of Treatment unknown Response to Treatment Poor, continues to relapse Current Mental Status Mental Status Orientation: Person, Place, Situation Affect: WNL Speech: WNL Neuro-vegetative: Sleep Disturbance Appearance Appearance- Dress/Hygiene: In hospital issued scrubs, lying down in bed, normal hygiene. Able to respond to questions appropriately, good eye contact, easy to engage in conversatio. Behaviors Thought Process: WNL Thought Content: WNL Memory: WNL Insight: Fair SI/HI Risk Assessment Past Suicidal Ideation/Attempts Yes Current Suicidal Ideation/Att No Past Homicidal Ideation/Att: No Current Homicidal Ideation/Attempts No Degree of Intent: None Risk Factors: SA/MH hospitalized, substance abuse, male Lethality Ratin (mild) PTSD Checklist PTSD Done? pt unable to participate ED Management Sitter: Yes Restraints: No DSM5/PS Stressors/Medical Prob Diagnosis' (DSM 5, Stressors, Medical): F32.9 - Unspecified Depression F10.20 - Alcohol Use Disorder F14.20 - Cocaine Use Disorder Current GAF: 45 Departure Disposition Referrals Patient Has No Primary Care Dr (PCP/Family)
[2018-05-25 10:49] VITALS: BP 118/60
== END 2018-05-25 11:30 ==
LOC: ERH 20:23
PROVIDERS: Emergency Medicine
DX: F14.10 Cocaine abuse, uncomplicated (principal); F32.9 Major depressive disorder, single episode, unspecified
CPT/HCPCS: 80307; G0463; G0480